=== PATIENT | male | born 1965 | race Caucasian/White ===

== ENCOUNTER 2017-05-28 21:46 | Emergency (ER) | payer MEDICAID ==
[~2017-05-28] VITALS: Ht 175.3 cm; Wt 95.3 kg
[~2017-05-28 21:46] MED LIST: ALBU8.5H12 IH; ASPI81TA94 PO; BACL-1 PO; CYCL10TA29 PO; ESZO1TAB19 PO; HYDR-4309 PO; LISI-362 PO; LOR5/325 PO; NAPR220C11 PO
[2017-05-28] MEDS ORDERED: LISI-362 PO (21:55)
[2017-05-28] MEDS ORDERED: DIAZEPAM 10 MG TAB PO ONE (23:50)
[2017-05-28] MEDS ORDERED: DEXAMETHASONE 4 MG TAB PO ONE (23:50)
[2017-05-28] MEDS ORDERED: KETOROLAC 60 MG/2 ML VIAL IM ONE (23:50)
--- NOTE | 2017-05-28 23:57 | RADIOLOGY IMAGING REPORT ---
FACILITY: [facility] - [place] PATIENT NAME: Mike Cr : 1965 MR: [id number] V: [id number] EXAM DATE: ORDERING PHYSICIAN: SHREYA SANCHEZ TECHNOLOGIST: Location: [facility] - [place] Patient: Mike Cr : 1965 Visit/Account:[id number] Date of Sevice: 05/28/2017 HIP LEFT HISTORY: fall onto left hip. Ambulates, but with pain Pelvis and left hip films FINDINGS: Pelvic girdle is intact. No fractures. Both hip joints well-maintained. Specifically the left hip dem onstrates no acute fracture. IMPRESSION: 1. Negative pelvis and left hip films for acute bony pathology Report Dictated By: Ryan Ricketts MD at 05/28/2017 11:52 PM Report E-Signed By: Ryan Ricketts MD at 05/28/2017 11:53 PM WSN:[id number]
[2017-05-29] VITALS: BP 147/95
--- NOTE | 2017-06-15 08:28 | ER Report ---
History and Physical Time Seen By MD: 22:00 Hx. of Stated Complaint: PATIENT STATES HE FELL AROUND 1600. HE FELL FROM STANDING TO GROUND, HE HAS PAIN FROM HIS HIP DOWN HIS LEG ON THE LEFT SIDE. PATIENT STATES HE TOOK AN ALEVE AND BACLOFEN BUT IT DIDN'T REALLY HELP. Allergies: Coded Allergies: No Known Drug Allergies (Unverified , 05/28/17) Home Meds Active Scripts Baclofen (BACLOFEN) 10 Mg Tablet, 10 MG PO TID Y for MUSCLE SPASMS, #20 TAB 0 Refills Prov:JOEL RODAS MD 11/14/16 Reported Medications Lisinopril (LISINOPRIL) 10 Mg Tablet, 10 MG PO QDAY, TAB 05/28/17 Naproxen Sodium (NAPROXEN SODIUM) 220 Mg Capsule, 220 MG PO TID, CAPSULE 11/14/16 Aspirin (ASPIRIN) 81 Mg Tab.chew, 81 MG PO QDAY, TAB.CHEW TAKE 1 TABLET BY MOUTH EVERY DAY 05/28/14 Albuterol Sul Hfa 90 Mcg 8 Gm (VENTOLIN HFA 90 MCG 8 GM) 8.5 Gm Hfa.aer.ad, 1-2 PUFF IH 3-4XD 05/28/14 Hx Smoking: No Smoking Status: Never Smoker Exposure to Second Hand Smoke?: No Hx Substance Use Disorder: No Hx Alcohol Use: No Constitutional Depart Departure Latest Vital Signs SHREYA SANCHEZ MD May 28, 2017 23:41 D/T: D/T: D/T: 40 40 [facility]
--- NOTE | 2017-07-30 13:21 | ER Report ---
History and Physical Time Seen By MD: 22:00 Hx. of Stated Complaint: PATIENT STATES HE FELL AROUND 1600. HE FELL FROM STANDING TO GROUND, HE HAS PAIN FROM HIS HIP DOWN HIS LEG ON THE LEFT SIDE. PATIENT STATES HE TOOK AN ALEVE AND BACLOFEN BUT IT DIDN'T REALLY HELP. HPI/ROS Mechanical fall onto his left side, and now with left low back and pain down his left leg. Able to ambulate. No weakness or paresthesias in LE. No midline back pain. No other injuries Remainder of the 14 system rev: Yes Allergies: Coded Allergies: No Known Drug Allergies (Unverified , 05/28/17) Home Meds Active Scripts Baclofen (BACLOFEN) 10 Mg Tablet, 10 MG PO TID Y for MUSCLE SPASMS, #20 TAB 0 Refills Prov:JOEL RODAS MD 11/14/16 Reported Medications Lisinopril (LISINOPRIL) 10 Mg Tablet, 10 MG PO QDAY, TAB 05/28/17 Naproxen Sodium (NAPROXEN SODIUM) 220 Mg Capsule, 220 MG PO TID, CAPSULE 11/14/16 Aspirin (ASPIRIN) 81 Mg Tab.chew, 81 MG PO QDAY, TAB.CHEW TAKE 1 TABLET BY MOUTH EVERY DAY 05/28/14 Albuterol Sul Hfa 90 Mcg 8 Gm (VENTOLIN HFA 90 MCG 8 GM) 8.5 Gm Hfa.aer.ad, 1-2 PUFF IH 3-4XD 05/28/14 Reviewed Nurses Notes: Yes Old Medical Records Reviewed: Yes Hx Smoking: No Smoking Status: Never Smoker Exposure to Second Hand Smoke?: No Hx Substance Use Disorder: No Hx Alcohol Use: No Constitutional Vital Signs Date Time Temp Pulse Resp B/P (MAP) Pulse Ox O2 Delivery O2 Flow Rate FiO2 05/28/17 21:50 98.1 112 16 163/115 95 Physical Exam GE: Well appearing, in NAD HEENT: NCAT, PERRL, EOMI CV: RRR, no m/r/g Lungs: cta b/l Abdomen: soft, ntnd Back: no midline TTP, no stepoffs or external signs of trauma, TTP at the left buttocks area which reproduces the pain. Neuro: strength/sensation grossly in tact, normal gait Medical Decision Making ED Course/Re-evaluation ED Course Minor fall with a normal neuro/vascular exam, no external signs of trauma, no abdominal pain or TTP, exam consistent with sciatica. Pain improved with supportive medication in the ED. Will follow up with PCM Decision to Disposition Date: May 28, 2017 Decision to Disposition Time: 23:00 Depart Departure Impression: Primary Impression: Sciatic leg pain Condition: Improved Disposition: HOME OR SELF-CARE Departure Forms: Medications Reconciliation, Patient Portal Information, ER Transition Record Patient Instructions: Sciatica (ED) SHREYA SANCHEZ MD Jul 30, 2017 13:21
== END 2017-05-29 00:40 | disposition home or self-care (01) ==
LOC: ER 22:02
DX: M54.42 Lumbago with sciatica, left side (principal); W18.30XA Fall on same level, unspecified, initial encounter
CPT/HCPCS: 73502; 96372; 99283; J1885; J8540